=== PATIENT | female | born 1975 | race Caucasian/White ===

== ENCOUNTER → 2022-09-19 | Emergency (ER) | payer MEDICAID ==
[~2022-09-19] VITALS: Ht 160 cm; Wt 81.9 kg
[2022-09-19 12:58] VITALS: BP 122/86
== END | disposition home or self-care (01) ==
LOC: ER 10:45
DX: H33.22 Serous retinal detachment, left eye (principal); H40.052 Ocular hypertension, left eye; H54.7 Unspecified visual loss; Z98.890 Other specified postprocedural states
CPT/HCPCS: 99284